=== PATIENT | female | born 1960 | race African-American/Black ===

== ENCOUNTER → 2021-02-05 | Outpatient (CLI) | payer BC ==
--- NOTE | 2021-02-05 12:10 | RAD ---
XR RT TOE 2+ VIEWS Clinical Indication: Reason: stubbed 5th digit, pain and bruising Comparison: None. Findings: AP and lateral views. Sensitivity decreased without third view. Bony overlap limits evaluation on the lateral view. There is soft tissue swelling of the fifth toe. No radiopaque foreign body is seen. No acute fracture is identified. There is interphalangeal joint space narrowing. The mineralization is normal. No bone erosion is identified. IMPRESSION: No acute fracture is identified. Electronically signed by: Eric Napier MD (02/05/2021 12:08 PM) IAN
== END ==
LOC: RAD 09:46
PROVIDERS: ATTEND Family Medicine
DX: S99.921A Unspecified injury of right foot, initial encounter (principal); M79.89 Other specified soft tissue disorders; X58.XXXA Exposure to other specified factors, initial encounter; Y93.89 Activity, other specified; Y92.89 Other specified places as the place of occurrence of the external cause; Y99.8 Other external cause status
CPT/HCPCS: 73660

== ENCOUNTER → 2021-03-15 | Outpatient (CLI) | payer BC ==
--- NOTE | 2021-03-15 11:15 | RAD ---
EXAM: Abdomen sonogram. HISTORY: Elevated liver enzyme laboratory values. TECHNIQUE: Sonographic imaging of the abdomen was performed. COMPARISON: None. FINDINGS: The liver is normal in size. There is hepatic steatosis. No focal hepatic lesion is seen. T here is a 1.4 cm gallstone. There is no evidence of cholecystitis. The right kidney measures 8.9 cm p ole-to-pole. There is no hydronephrosis or solid or cystic renal lesion. The pancreas, aorta and vena cava are partially obscured due to bowel gas and body habitus. IMPRESSION: 1. Hepatic steatosis. 2. Cholelithiasis. 3. Mild decreased right renal size due to measurement technique or mild atrophy. Electronically signed by: Caron Goncalves MD (03/15/2021 11:13 AM) [id number]
== END ==
LOC: US 08:01
PROVIDERS: ATTEND Family Medicine
DX: K76.0 Fatty (change of) liver, not elsewhere classified (principal); K80.20 Calculus of gallbladder without cholecystitis without obstruction; R74.8 Abnormal levels of other serum enzymes
CPT/HCPCS: 76705